=== PATIENT | female | born 1955 | race Caucasian/White ===

== ENCOUNTER → 2023-04-29 13:28 | Outpatient (REF) | payer OTHER, SELFPAY | LOC: MRI 3T 13:28 | PROVIDERS: ATTENDING PHYSICIAN Nurse Practitioner Family; FAMILY PHYSICIAN Physician Assistant Medical | DX: Z80.3 Family history of malignant neoplasm of breast (principal); Z15.01 Genetic susceptibility to malignant neoplasm of breast | CPT/HCPCS: 77049; A9585 ==

== ENCOUNTER → 2023-06-11 12:58 | Outpatient (REF) | payer OTHER, SELFPAY | LOC: WDC 12:58 | PROVIDERS: ATTENDING PHYSICIAN Nurse Practitioner Family; FAMILY PHYSICIAN Physician Assistant Medical | DX: Z12.31 Encounter for screening mammogram for malignant neoplasm of breast (principal) | CPT/HCPCS: 77063; 77067 ==

== ENCOUNTER → 2024-06-15 13:25 | Outpatient (REF) | payer OTHER, SELFPAY | LOC: WDC 13:25 | PROVIDERS: ATTENDING PHYSICIAN Nurse Practitioner Family | DX: Z12.31 Encounter for screening mammogram for malignant neoplasm of breast (principal) | CPT/HCPCS: 77063; 77067 ==

== ENCOUNTER 2024-07-11 23:39 | Inpatient (IN) | payer OTHER, SELFPAY ==
[2024-07-11 19:37] VITALS: BP 170/110
[2024-07-11] MEDS: MOTRIN 600 MG PO (19:44)
[2024-07-11 20:09] LABS: % Basophils 0.4 % (0-2); % Eosinophils 1.6 % (0-6); % Immature Granulocytes 0.7 % (0-0.5); % Lymphocytes 2.3 % (20.5-51.1); % Monocytes 7.7 % (1.7-9.3); % Neutrophils 87.3 % (42.2-75.2); Absolute Eosinophils 0.2 10^3/uL (0-0.7); Absolute Immature Granulocytes 0.1 10^3/uL (0-0.05); Absolute Lymphocytes 0.3 10^3/uL (1.2-3.4); Absolute Monocytes 0.9 10^3/uL (0.1-0.6); Absolute Neutrophils 9.9 10^3/uL (1.4-6.5); Hematocrit 37.3 % (37.0-47.0); Hemoglobin 13.2 g/dL (12.0-16.0); Mean Corp Hgb Conc. 35.4 g/dL (33.0-37.0); Mean Corpuscular Hgb 28.4 pg (27.0-31.0); Mean Corpuscular Volume 80.4 fL (81.0-99.0); Mean Platelet Volume 12.3 fL (7.4-10.4); Nucleated Red Blood Cells % 0 %; Platelet Count 127 10^3/uL (130-400); Red Blood Cell Count 4.64 10^6/uL (4.20-5.40); Red Cell Dist. Width 13.7 % (11.5-14.5); White Blood Cell Count 11.4 10^3/uL (4.8-10.8)
--- NOTE | 2024-07-11 20:23 | ED.GENMED ---
History of Present Illness
General
Chief Complaint: Urinary Symptoms
Source: patient
Exam Limitations: none
Time Seen by Provider: 07/11/24 19:42
Nursing documentation reviewed up to this point in time: agreed with
History of Present Illness
History of Present Illness:
69-year-old female presents with fever and chills onset a few days ago send urine [facility] started on Macrobid had 3 doses, had chills, temp of 102.8, concerned that she has had sepsis from impacted gallstone and impacted kidney stone, has no flank
pain, no real abdominal pain has been coughing a bit, has had a flu shot
Past History
Past History
ED Past Medical History: GERD, HTN, NIDDM, Hypothyroidism and Other (Hyponatremia, interstitial cystitis, cervical and lumbar disc disease)
ED Past Surgical History: Cholecystectomy, Gynecological (hyster), Orthopedic (Right total knee replacement November 2016, left total knee replacement December 2017) and Urological
Social History
Tobacco: Non-smoker
Alcohol: None
Drug: None
Personal:
Living: with family
Employment: Employed
Family History
Family History: Other (Noncontributory)
Review of Systems
Review of Systems
All Other Systems: Not applicable
Constitutional: Reports fever, fatigue and chills
Respiratory: Reports cough
ABD/GI: Reports nausea; Denies abdominal pain
: Reports dysuria, frequency and urgency; Denies flank pain, incontinence, difficulty voiding or dark urine
Musculoskeletal: Reports no symptoms
Skin: Reports no symptoms
Neurological: Reports weakness
Phy Exam
Physical Exam
Physical Exam:
Physical Exam
General: 69-year-old female febrile
Neck: No jaundice
Heart: s1/s2 regular rate and rhythm, no murmur. equal radial pulses.
Lungs: Faint wheezing bilateral
Abdomen: Soft minimal suprapubic tenderness
Neuro: alert and oriented. no focal neurological deficits
Skin: no rash
Psychiatric: well kept. interactive and cooperative
Extremities: no edema.
Course
Orders/Labs/Results
Orders:
Orders
07/11/24 19:41
Ibuprofen [Motrin] 600 mg PO NOW STA
07/11/24 20:00
Complete Blood Count/With Diff Urgent
Comprehensive Metabolic Panel Urgent
Lactic Acid Q4H
Comment: CANCEL 2nd LACTIC ACID IF 1st LACTIC ACID IS LESS THAN 2
Lactic Acid Urgent
07/11/24 20:08
CT Abd/pelvis W Iv Cont Urgent
Comment:
Reason For Exam: fever
CR Chest - 2 Views Urgent
Comment:
Reason For Exam: fever
07/11/24 20:09
0.9% Sodium Chloride 1000 ml [Nss] 2,000 ml IV BOLUS
Acetaminophen [Tylenol] 1,000 mg PO NOW STA
CefTRIAXone [Rocephin] 1,000 mg IV NOW STA
07/11/24 20:17
COVID-19 Antigen Urgent
Source: Nasal Swab
Blood Culture Q30M
NIKKY Source: Blood/Venous
Specimen Description:
Blood Culture Q30M
NIKKY Source: Blood/Venous
Specimen Description:
Influenza A+B Rapid Molecular Urgent
NIKKY Source: Nasal Swab
Specimen Description:
07/11/24 22:05
Urinalysis Urgent
Date Specimen was Collected: 07/11/24
Time Specimen was Collected: 21:58
Urine Culture Urgent
NIKKY Source: Urine
Specimen Description:
Obtained by: Bladder
Date Specimen was Collected: 07/11/24
Time Specimen was Collected: 21:58
07/12/24 00:00
Lactic Acid Q4H
Comment: CANCEL 2nd LACTIC ACID IF 1st LACTIC ACID IS LESS THAN 2
Abnormal Lab Results
07/11/24
20:00
WBC 11.4 H 10^3/uL
(4.8-10.8)
MCV 80.4 L fL
(81.0-99.0)
Plt Count 127 L 10^3/uL
(130-400)
MPV 12.3 H fL
(7.4-10.4)
Abs Immat Gran (auto) 0.1 H 10^3/uL
(0-0.05)
Absolute Neuts (auto) 9.9 H 10^3/uL
(1.4-6.5)
Absolute Lymphs (auto) 0.3 L 10^3/uL
(1.2-3.4)
Absolute Monos (auto) 0.9 H 10^3/uL
(0.1-0.6)
Immature Gran % 0.7 H %
(0-0.5)
Neutrophils % 87.3 H %
(42.2-75.2)
Lymphocytes % 2.3 L %
(20.5-51.1)
Sodium 134 L mmol/L
(135-145)
Potassium 3.3 L mmol/L
(3.5-5.1)
Chloride 97 L mmol/L
(98-107)
BUN 19 H mg/dl
(7-17)
Creatinine 1.1 H mg/dL
(0.6-1.0)
Glucose 198 H mg/dl
(70-99)
Lactic Acid 2.2 H mmol/L
(0.7-2.0)
07/11/24 20:00
07/11/24 20:00
Vital Signs
Initial and Last Documented VS:
Initial Vital Signs
Temp Pulse Resp BP Pulse Ox
102.0 F H 88 20 170/110 95
07/11/24 19:37 07/11/24 19:37 07/11/24 19:37 07/11/24 19:37 07/11/24 19:37
Last Documented Vital Signs
Temp Pulse Resp BP Pulse Ox
101 F H 122 23 170/110 97
07/11/24 20:00 07/11/24 20:00 07/11/24 20:00 07/11/24 19:37 07/11/24 19:54
MDM/Problems Addressed
Differential Diagnosis Includes:
UTI sepsis pneumonia viral syndrome biliary intra-abdominal
MDM/Problems Addressed:
Fever
Chronic conditions affecting care: DM
Acute Exacerbation and/or Progression of Chronic Illness: DM
*Radiology
Radiology exam reviewed: preliminary read by ED provider
*Pulse Oximetry
Patient hypoxic: no
*Gospel Singer Interpretation
Rate: tachycardiac
Interpretation: abnormal
Heart Rate: 118
Rhythm: sinus
*Critical Care Note
Total Time (30-74mins, 75-104mins- exclusive of procedures): 31
Data Reviewed
Review of Other/Old Records Reveals: Labs and Records
Source: patient
Update Note
Update Note:
10:15 PM patient feeling better labs noted viral swabs noted CT noted I did review with radiology concerns it could be an abnormality include malignancy versus other, did review concerns with patient, at this point I believe would be prudent to
admit her to the hospital likely urosepsis failed outpatient therapy
ED Attending Note
-
Portions of this chart may have been created with voice recognition software.� Occasional wrong word or��sound alike� substitutions may have occurred due to the inherent limitations of voice recognition software.
Discharge Plan
Departure
Patient Disposition: Admit
Date of Disposition: 07/11/24
Time of Disposition: 22:14
Admit to: Med/Surg
Presentation/result/management discussed w/ accepting MD/DO: Hospitalist
Patient with high blood pressure during this ER visit?: No
Condition: Fair
Covid-19: Negative COVID-19
Discharge Problem:
Sepsis syndrome
Prescriptions:
No Action
levothyroxine 75 MCG tablet
75 mcg PO DAILY
acetaminophen-caffeine [Excedrin Tension Headache] 1 TAB tablet
1 tab PO BID
pantoprazole 40 MG tablet,delayed release (DR/EC)
40 mg PO BID
metformin 500 MG tablet
500 mg PO HS
metformin 500 MG tablet
1,000 mg PO DAILY AT 0700
hydrocodone-acetaminophen 1 TABLET tablet
1 - 2 tab PO Q4HPRN PRN (Reason: moderate to severe pain) Qty: 20 0RF
lidocaine [Aspercreme (lidocaine)] 1 PATCH adhesive patch,medicated
2 patch transdermal DAILY PRN (Reason: pain)
triamterene-hydrochlorothiazid 1 CAPSULE capsule
1 cap PO DAILY
Patient Comments:
37.5/25 mg
oxycodone 5 MG tablet
5 mg PO BID
propranolol [Inderal XL] 120 MG capsule,extended release 24hr
120 mg PO HS
baclofen 10 MG tablet
10 mg PO BID
cephalexin 500 MG capsule
500 mg PO QID Qty: 20 0RF
sucralfate [Carafate] 1 gram tablet
1 g PO AC Qty: 30 0RF
Referrals:
Camila Spaulding PA-C [Family Provider] -
Interventions
Interventions:
*Risk Screen - Suicide Last Done: 07/11/24 20:33
*General Assessment Last Done: 07/11/24 19:37
*Neglect/Abuse Screening Last Done: 07/11/24 20:04
*ED- Fall Risk Assessment Last Done: 07/11/24 20:04
*ED COVID-19 Vaccine History Last Done: 07/11/24 20:04
ED-Female Genitourinary Assessment Last Done: 07/11/24 20:04
Discharge Date and Time
Print Language: PANAMANIAN
[2024-07-11 20:24] LABS: ALT (SGPT) 27 U/L (0-35); AST (SGOT) 34 U/L (14-36); Albumin 4.4 g/dl (3.5-5.0); Alkaline Phosphatase 78 U/L (38-126); Blood Urea Nitrogen 19 mg/dl (7-17); Calcium 10.1 mg/dl (8.4-10.2); Carbon Dioxide 23 mmol/L (22-30); Chloride 97 mmol/L (98-107); Glucose 198 mg/dl (70-99); Lactic Acid 2.2 mmol/L (0.7-2.0); Potassium 3.3 mmol/L (3.5-5.1); Sodium 134 mmol/L (135-145); Total Bilirubin 1.3 mg/dl (0.2-1.3); Total Protein 7.3 g/dl (6.3-8.2); eGFR 54.39
[2024-07-11] MEDS: NSS 2000 IV (20:27)
[2024-07-11] MEDS: ROCEPHIN 1000 MG IV (20:28)
[2024-07-11 21:02] LABS: COVID-19 Antigen Negative (Negative)
[2024-07-11 22:13] LABS: Urine Albumin 2+ (Neg - Trace); Urine Bilirubin Negative (Negative); Urine Character Clear (Clear); Urine Glucose Negative (Negative); Urine Ketone 1+ (Negative); Urine Leukocyte 1+ (Negative); Urine Nitrite Negative (Negative); Urine Occult Blood Negative (Negative); Urine Specific Gravity 1.005 (<1.030); Urine Urobilinogen Negative (Neg - 1+)
[2024-07-11 22:22] VITALS: BMI 34.0
[2024-07-11 22:26] VITALS: BP 147/81
[2024-07-11 22:29] LABS: Urine Red Blood Cell 0-2 /HPF (0-2)
[2024-07-11 22:30] LABS: Urine Bacteria Few (Negative)
--- NOTE | 2024-07-11 23:01 | HPS.HSE ---
Family Physician
-
Family Physician: Camila Spaulding
Chief Complaint
-
Fevers and chills
History of Present Illness
Patient is a 69-year-old with past medical history significant for interstitial cystitis, recurrent UTIs, nephrolithiasis, type 2 diabetes, presenting to the emergency department with fevers and chills from home.
Patient reported that she started having bladder symptoms 2 days ago including frequency, pelvic discomfort, dysuria and some urgency. She reports this is typical of her interstitial cystitis and usually gets checked out. She did get urine studies
at [facility] on Friday and she started Macrobid on Friday. She has taken 3 doses of Macrobid since then and started developing fevers today. She had a fever up to 101 associated with chills and rigors at home. She felt nauseous but did not have
any vomiting. She felt similar to when she had sepsis in the setting of impacted gallstones for which she is status post cholecystitis and she decided come to the emergency department. She denies having any flank pain. She denies any cough.
Denies any shortness of breath. She has no known sick contacts. She denies any rash, joint aches and pains.
In the emergency department she had a Tmax of 102, blood pressure was 147/81 and she was tachycardic to 104. Was in saturation was 94% on room air.
She had a white count of 11.4, hemogram platelets were normal. Electrolytes had a potassium of 3.3 but otherwise unremarkable. BUN/creatinine with stable. Lactic acid was 2.2 glucose was 198. Chest x-ray showed no acute to interstitial
infiltrates. COVID test was negative. Influenza test was negative.
CT of the abdomen and pelvis showed mild portal splenomegaly with diffuse fatty liver, prior cholecystectomy, no biliary changes, there is a 0.8 cm low-attenuation partially exophytic right renal lesion too small to characterize but most likely not
a simple cyst. Possibly a complex/proteinaceous cyst.
Medical History
Past Medical History
Past Medical History: Reports HTN, Hypothyroidism, NIDDM, Psychiatric and Other (gout, breast cyst, meningioma, ckd 3, nephrolithiasis)
Past Surgical History: Reports Appendectomy, Bowel Resection (Partial colectomy), Cholecystectomy, Gynocological (Hysterectomy) and Orthopedic (Bilateral total knee replacements)
Social History
Tobacco: Non-smoker
Alcohol: None
Drug: None
Personal:
Living: With Family
Employment: Retired
Family History
Family History: Not pertinent
Allergies / Home Medications
Allergies reflects when Allergies were last updated in [facility].
Home Medications with original date entered in [facility]
Allergy/Medication List:
Allergies
Allergy/AdvReac Type Severity Reaction Status Date / Time
morphine Allergy itchy;skin Verified 07/11/24 19:37
rash
Sulfa (Sulfonamide Allergy ,hives Verified 07/11/24 19:37
Antibiotics)
Home Medications
levothyroxine 75 mcg tablet 75 mcg PO DAILY Thyroid 12/23/16
acetaminophen-caffeine 500 mg-65 mg tablet (Excedrin Tension Headache) 1 tab PO BID Pain 12/18/17
pantoprazole 40 mg tablet,delayed release 40 mg PO BID 12/18/17
baclofen 10 mg tablet 10 mg PO BID 05/29/21
lidocaine 4 % topical patch (Aspercreme (lidocaine)) 2 patch transdermal DAILY PRN pain 05/29/21
oxycodone 5 mg tablet 5 mg PO BID 05/29/21
propranolol 120 mg capsule,extended release 24 hr (Inderal XL) 120 mg PO HS 05/29/21
triamterene 37.5 mg-hydrochlorothiazide 25 mg capsule 1 cap PO DAILY 05/29/21
metformin 500 mg tablet 1,000 mg PO DAILY AT 0700 Diabetes 06/22/21
metformin 500 mg tablet 500 mg PO HS 06/22/21
hydrocodone 5 mg-acetaminophen 325 mg tablet 1 - 2 tab PO Q4HPRN PRN moderate to severe pain ##20 02/28/22
cephalexin 500 mg capsule 500 mg PO QID #20 caps 10/01/21
sucralfate 1 gram tablet (Carafate) 1 g PO AC #30 tabs 05/09/22
Review of Systems
-
Constitutional: Reports Fever and Chills
EENT: Reports No Symptoms
Respiratory: Reports No Symptoms
Cardiac: Reports No Symptoms
Abdomen/GI: Reports Nausea
: Reports Dysuria and Frequency; Denies Flank Pain, Incontinence or Difficulty Voiding
Musculoskeletal: Reports No Symptoms
Skin: Reports No Symptoms
Neurological: Reports No Symptoms
Endocrine: Reports No Symptoms
Hematologic/Lymphatic: Reports No Symptoms
Psych: Reports No Symptoms
Physical Exam
Vital Signs
Vital Signs
Temp Pulse Resp BP Pulse Ox
98.8 F 101 22 147/81 95
07/11/24 22:15 07/11/24 22:45 07/11/24 22:45 07/11/24 22:26 07/11/24 22:45
Physical Exam
General: Well Developed, Well Nourished, No Apparent Distress, Comfortable and Conversant
HEENT: NormoCephalic, Anicteric, Moist mucous membranes and Atraumatic
Respiratory: Clear
Cardiac: S1/S2 and Regular Rhythm
Breast: Deferred by me
GI: Soft, Non Tender, Non Distended and Normal Bowel Sounds
Rectal: Deferred by Provider
Genito-urinary: No costovertebral tender
Musculoskeletal: No Clubbing, No Cyanosis and No Edema
Skin: Warm
Neuro: AO x 3 and Nonfocal/grossly intact
Hematologic/Lymphatic: No Lymphadenopathy
Psych: Calm
Laboratory Results
-
07/11/24 20:00
07/11/24 20:00
Laboratory Results
Lactic Acid 2.2 mmol/L (0.7-2.0) H 07/11/24 20:00
Lactic Acid Cancelled 07/11/24 20:00
Total Bilirubin 1.3 mg/dl (0.2-1.3) 07/11/24 20:00
AST 34 U/L (14-36) 07/11/24 20:00
ALT 27 U/L (0-35) 07/11/24 20:00
Alkaline Phosphatase 78 U/L (38-126) 07/11/24 20:00
Data Reviewed
-
CT Scan: Report Reviewed by me
Lab Data: Labs Reviewed by me
Old Records: Reviewed
Impression/Plan
-
IMPRESSION:
69 y.o female coming in with fever. Source uncertain but likely pyelonephritis. She has interstitial cystitis and bladder symptoms 2 days ago. She reported dysuria, pelvic pain and frequency. No flank pain. Started macrobid and has taken 3 doses
with continued urinary symptoms and now fevers to 102. U/A here is not impressive but she has been on macrobid. No other clear etiology of her fever.
PLAN:
Fever - Presumed urinary tract infection but u/a affected by recent abx. No other source of the fever clear on exam.
- admit to med/surg
- blood cultures, urine cultures sent
- obtained outpatient U/A, Ucx from Dr. Joe
- Ceftriaxone 1 g daily for now
- supportive measures
- if persistently febrile, will consult ID
Renal cyst
- per radiology not simple and possibly malignant.
- obtain CT w/ and w/o contrast. Patient has claustrophobia and will not tolerate MRI
HTN
- continue hctz-triamtere
- inderal 120
DM II
- hold metformin x 48 hours
- sliding scale insulin
Hypothyroid
- levothyroxine 112
ppi ppx - protonix
DVT PPX - lovenox sq
Code status full code
[2024-07-11] MEDS: KCL 40 MEQ PO (23:44)
[2024-07-12] MEDS: INDERAL LA 120 MG PO ×2 (00:13→21:24)
[2024-07-12 01:26] VITALS: BP 148/75; BMI 33.0
--- NOTE | 2024-07-12 01:26 | PTCARENOTE ---
Pt arrived onto floor @0126. Pt AAOx3 and able to ambulate into room without assistance. Pt with no complaints of SOB at this time. Pt oriented to room and call butler; will continue to monitor.
[2024-07-12] MEDS: NSS 1000 IV ×2 (01:58→19:58)
[2024-07-12] MEDS: SYNTHROID 112 MCG PO (04:44)
[2024-07-12 07:00] VITALS: BP 135/66
[2024-07-12 07:22] LABS: Glucose - Point of Care 125 mg/dl (70-99)
[2024-07-12] MEDS: NOVOLOG FLEXPEN-LOW RESISTANCE SC (08:49)
[2024-07-12] MEDS: DYAZIDE 1 CAPSULE PO (08:51)
[2024-07-12] MEDS: PROTONIX PO (08:57)
[2024-07-12 09:22] LABS: Lactic Acid 1.5 mmol/L (0.7-2.0)
[2024-07-12 09:25] LABS: Hematocrit 30.9 % (37.0-47.0); Hemoglobin 10.7 g/dL (12.0-16.0); Mean Corp Hgb Conc. 34.6 g/dL (33.0-37.0); Mean Corpuscular Hgb 28.2 pg (27.0-31.0); Mean Corpuscular Volume 81.3 fL (81.0-99.0); Platelet Count 108 10^3/uL (130-400); Red Cell Dist. Width 14.1 % (11.5-14.5); White Blood Cell Count 7.3 10^3/uL (4.8-10.8)
[2024-07-12 10:00] LABS: Blood Urea Nitrogen 17 mg/dl (7-17); Calcium 8.9 mg/dl (8.4-10.2); Carbon Dioxide 23 mmol/L (22-30); Chloride 101 mmol/L (98-107); Estimated Creatinine Clearance 55 ml/min; Glucose 154 mg/dl (70-99); Magnesium 1.2 mg/dl (1.6-2.3); Potassium 3.6 mmol/L (3.5-5.1); Sodium 136 mmol/L (135-145); eGFR 54.39
[2024-07-12 11:19] LABS: Glucose - Point of Care 150 mg/dl (70-99)
--- NOTE | 2024-07-12 12:07 | W.PN.HOSP.TC ---
Today's Communication/Plan
-
IV antibiotics pending final blood and urine cultures per
Repeat CT scan working up right renal cyst.
Hold metformin
Hold diuretics
IV fluids
Monitor WBC and temperature curve.
Assessment / Plan
Assessment / Plan
Impression:
69 y.o female coming in with fever. Source uncertain but likely pyelonephritis. She has interstitial cystitis and bladder symptoms 2 days ago. She reported dysuria, pelvic pain and frequency. No flank pain. Started macrobid and has taken 3 doses
with continued urinary symptoms and now fevers to 102. U/A here is not impressive but she has been on macrobid. No other clear etiology of her fever.
Urinary tract infection.
Renal cyst
Conditions prior to admission:
Essential hypertension
Type 2 diabetes.
Hypothyroidism on replacement.
Plan:
Urinary tract infection uncomplicated with no evidence of systemic infection.
Urinary symptoms two days prior to presentation while patient initiated on Macrobid
Outpatient blood cultures obtained and pending.
Urine culture pending
Blood culture pending.
Continued ceftriaxone
Monitor WBC and temperature curve.
Right renal cyst.
CT on 07/11
Mild hepatosplenomegaly with findings suggesting diffuse fatty liver.
Prior cholecystectomy. Mild prominence of the extrahepatic biliary tract most likely the sequela of prior cholecystectomy. Suggest correlation with liver function tests.
0.8 cm low-attenuation partially exophytic right renal lesion too small to characterize but most likely not a simple cyst. This could represent a complex/proteinaceous cyst. Solid mass such as MALIGNANCY CANNOT BE EXCLUDED. Suggest dedicated Abdomen
CT without and with intravenous contrast or MRI for more complete evaluation.
No findings to suggest renal calculi bilaterally.
Discussed with radiology and urology.
Plan is to repeat CT scan with and without IV contrast on 07/13
Will need outpatient urology follow-up
Essential hypertension.
Continue propranolol.
Hold thiazide diuretic acutely.
Currently on IV fluids.
Type 2 diabetes.
Patient reported reasonable blood glucose control as outpatient with most recent hemoglobin A1c at 6.
Continue basal bolus protocol.
Hold metformin acutely given IV contrast exposure
DVT prophylaxis: Lovenox
Full code
Anticipated Discharge: 24 - 48 hours
Subjective/Interval History
-
Date of Service: July 12, 2024
Objective Data
-
Labs:
Laboratory Results
07/12/24
08:55
WBC 7.3
Hgb 10.7 L
Hct 30.9 L
Plt Count 108 L
Sodium 136
Potassium 3.6
Chloride 101
Carbon Dioxide 23
BUN 17
Creatinine 1.1 H
Glucose 154 H
Calcium 8.9
Vital Signs:
Vital Signs
Temp Pulse Resp BP Pulse Ox
99 F 95 17 135/66 98
07/12/24 07:00 07/12/24 07:00 07/12/24 07:00 07/12/24 07:00 07/12/24 07:00
Physical Exam
-
General: Well Developed and No Apparent Distress
HEENT: Normocephalic, Atraumatic and Moist Mucous Membranes
Respiratory: Clear to Auscultation
Cardiac: Regular Rhythm and S1/S2; Negative Murmur, Rub or Gallop
GI: Soft, Nontender, Nondistended and Normal Bowel Sounds; Negative Organomegaly
Rectal: Deferred by Provider
Musculoskeletal: No Clubbing, No Cyanosis and No Edema
Skin: Negative Rash
Neuro: Nonfocal/Grossly Intact
[2024-07-12] MEDS: NOVOLOG FLEXPEN-LOW RESISTANCE 1 UNITS SC (14:48)
[2024-07-12 15:00] VITALS: BP 156/71
--- NOTE | 2024-07-12 15:38 | CM ---
biomedical manager reviewed patient's chart and met with patient and patient lives with her daughter in a 2 story home, patient is independent with adl's and ambulation, no dme, patient drives, home when stable, no needs.
PCP: Camila Spaulding
Pharmacy: [facility] in [place]
Plan; Home when stable, no needs.
[2024-07-12 16:39] LABS: Glucose - Point of Care 213 mg/dl (70-99)
[2024-07-12] MEDS: NOVOLOG FLEXPEN-LOW RESISTANCE 2 UNITS SC (17:11)
[2024-07-12] MEDS: LOVENOX 40 MG SC (18:35)
[2024-07-12] MEDS: STERILE WATER FOR INJECTION 10 ML IV (19:57)
[2024-07-12] MEDS: PROTONIX 40 MG PO (19:57)
[2024-07-12] MEDS: ROCEPHIN 1000 MG IV (19:57)
[2024-07-12 21:01] LABS: Glucose - Point of Care 150 mg/dl (70-99)
[2024-07-12 21:20] VITALS: BP 110/62
[2024-07-12] MEDS: XANAX 0.25 MG PO (21:24)
[2024-07-12 23:06] VITALS: BP 111/55
[2024-07-13] MEDS: SYNTHROID 112 MCG PO (05:40)
[2024-07-13 07:24] LABS: Glucose - Point of Care 128 mg/dl (70-99)
[2024-07-13 07:25] VITALS: BP 89/58
[2024-07-13] MEDS: NOVOLOG FLEXPEN-LOW RESISTANCE SC (08:14)
[2024-07-13] MEDS: PROTONIX 40 MG PO (08:19)
[2024-07-13 09:22] LABS: % Basophils 0.4 % (0-2); % Eosinophils 5.2 % (0-6); % Immature Granulocytes 0.4 % (0-0.5); % Lymphocytes 21.8 % (20.5-51.1); % Monocytes 9.9 % (1.7-9.3); % Neutrophils 62.3 % (42.2-75.2); Absolute Eosinophils 0.3 10^3/uL (0-0.7); Absolute Monocytes 0.5 10^3/uL (0.1-0.6); Hematocrit 32.9 % (37.0-47.0); Mean Corp Hgb Conc. 33.4 g/dL (33.0-37.0); Mean Corpuscular Hgb 27.8 pg (27.0-31.0); Mean Corpuscular Volume 83.1 fL (81.0-99.0); Nucleated Red Blood Cells % 0 %; Platelet Count 105 10^3/uL (130-400); Red Blood Cell Count 3.96 10^6/uL (4.20-5.40); Red Cell Dist. Width 14.1 % (11.5-14.5); White Blood Cell Count 4.8 10^3/uL (4.8-10.8)
[2024-07-13 10:02] LABS: Blood Urea Nitrogen 18 mg/dl (7-17); Calcium 9.6 mg/dl (8.4-10.2); Carbon Dioxide 26 mmol/L (22-30); Chloride 103 mmol/L (98-107); Estimated Creatinine Clearance 55 ml/min; Glucose 151 mg/dl (70-99); Potassium 3.7 mmol/L (3.5-5.1); Sodium 140 mmol/L (135-145); eGFR 54.39
[2024-07-13 10:55] LABS: ALT (SGPT) 22 U/L (0-35); AST (SGOT) 26 U/L (14-36); Albumin 3.7 g/dl (3.5-5.0); Alkaline Phosphatase 72 U/L (38-126); Direct Bilirubin 0.3 mg/dl (0.0-0.4); Total Bilirubin 0.7 mg/dl (0.2-1.3); Total Protein 6.4 g/dl (6.3-8.2)
[2024-07-13 11:47] LABS: Glucose - Point of Care 155 mg/dl (70-99)
--- NOTE | 2024-07-13 12:19 | W.PN.UPDATE ---
Update Note
Progress Note Update
Discussed mildly complex cystic mass of R kidney with hospitalist
Appearance relatively unchanged since scan in 2022 and relatively low suspicion for malignancy
She will need some surveillance imaging in around 6-12 mo
Will arrange outpatient follow up to discuss with me - our office will call to schedule
[2024-07-13] MEDS: NSS IV (13:02)
--- NOTE | 2024-07-13 13:52 | W.DS.TRANS ---
DC Summary - Mica Patcher
-
Discharge Instructions:
Discharge Diagnosis/Procedures UTI
Diet Regular
Instructions:
Stand-Alone Forms:
Changes to Home Medications: Yes
Discharge Medications:
DC Medications w/original date entered in [facility]
levothyroxine 75 mcg tablet 75 mcg PO DAILY Thyroid 12/23/16
acetaminophen-caffeine 500 mg-65 mg tablet (Excedrin Tension Headache) 1 tab PO BID Pain 12/18/17
pantoprazole 40 mg tablet,delayed release 40 mg PO BID Gastrointestinal Issue 12/18/17
baclofen 10 mg tablet 10 mg PO BID Muscle Spasms 05/29/21
lidocaine 4 % topical patch (Aspercreme (lidocaine)) 2 patch transdermal DAILY PRN pain 05/29/21
oxycodone 5 mg tablet 5 mg PO BID Pain 05/29/21
propranolol 120 mg capsule,extended release 24 hr (Inderal XL) 120 mg PO HS Blood Pressure 05/29/21
triamterene 37.5 mg-hydrochlorothiazide 25 mg capsule 1 cap PO DAILY Fluid Retention/Swelling 05/29/21
metformin 500 mg tablet 1,000 mg PO DAILY AT 0700 Diabetes 06/22/21
metformin 500 mg tablet 500 mg PO HS Diabetes 06/22/21
hydrocodone 5 mg-acetaminophen 325 mg tablet 1 - 2 tab PO Q4HPRN PRN moderate to severe pain ##20 06/25/21
sucralfate 1 gram tablet (Carafate) 1 g PO AC #30 tabs 05/09/22
Home Medication Changes
Urine culture performed prior to admission with Klebsiella sensitive to ceftriaxone and doxycycline
Patient has Rx provided by primary urinology for Doxycycline
Pending Results: No
[2024-07-13] MEDS: NOVOLOG FLEXPEN-LOW RESISTANCE 1 UNITS SC (14:19)
--- NOTE | 2024-07-13 14:58 | CM ---
Chart reviewed home today no needs.
Plan; Home no needs.
[2024-07-13 15:31] VITALS: BP 144/73
== END 2024-07-13 17:05 | disposition home or self-care (01) | DRG 690 ==
LOC: 4 WEST ACU 23:39
PROVIDERS: ADMITTING PHYSICIAN Internal Medicine; ATTENDING PHYSICIAN Internal Medicine; EMERGENCY PHYSICIAN Emergency Medicine; FAMILY PHYSICIAN Physician Assistant Medical
DX: N39.0 Urinary tract infection, site not specified (principal); E87.1 Hypo-osmolality and hyponatremia; E03.9 Hypothyroidism, unspecified; N18.30 Chronic kidney disease, stage 3 unspecified; M10.9 Gout, unspecified; N28.1 Cyst of kidney, acquired; F40.240 Claustrophobia; D32.9 Benign neoplasm of meninges, unspecified; E11.22 Type 2 diabetes mellitus with diabetic chronic kidney disease; R16.2 Hepatomegaly with splenomegaly, not elsewhere classified; K76.0 Fatty (change of) liver, not elsewhere classified; I12.9 Hypertensive chronic kidney disease with stage 1 through stage 4 chronic kidney disease, or unspecified chronic kidney disease; K21.9 Gastro-esophageal reflux disease without esophagitis; Z96.653 Presence of artificial knee joint, bilateral; Z90.49 Acquired absence of other specified parts of digestive tract; Z79.890 Hormone replacement therapy; Z79.84 Long term (current) use of oral hypoglycemic drugs; Z79.891 Long term (current) use of opiate analgesic; Z87.440 Personal history of urinary (tract) infections; Z88.5 Allergy status to narcotic agent; Z88.2 Allergy status to sulfonamides; Z87.442 Personal history of urinary calculi; Z11.52 Encounter for screening for COVID-19; Z90.710 Acquired absence of both cervix and uterus
CPT/HCPCS: 71046; 74150; 74170; 74177; 80048; 80053; 81003; 81015; 82248; 82962; 83605; 83735; 85025; 85027; 87040; 87086; 87502; 87811; 96360; 99291; Q9967

== ENCOUNTER 2024-11-03 06:17 | Day surgery (SDC) | payer OTHER, SELFPAY ==
[2024-11-03 07:26] LABS: Glucose - Point of Care 144 mg/dl (70-99)
== END 2024-11-03 09:15 | disposition home or self-care (01) ==
LOC: GI 06:17
PROVIDERS: ATTENDING PHYSICIAN Specialist
DX: Z12.11 Encounter for screening for malignant neoplasm of colon (principal); D12.3 Benign neoplasm of transverse colon; K63.5 Polyp of colon; R19.7 Diarrhea, unspecified; Z86.0100 Personal history of colon polyps, unspecified; Z98.0 Intestinal bypass and anastomosis status
CPT/HCPCS: 45380; 82962; 88305

== ENCOUNTER → 2025-01-05 06:28 | Outpatient (REF) | payer OTHER, SELFPAY ==
[2025-01-05] MEDS: LEXISCAN 0.4 MG IV (09:52)
== END ==
LOC: RCS 06:28
PROVIDERS: ATTENDING PHYSICIAN Nurse Practitioner; FAMILY PHYSICIAN Physician Assistant Medical
DX: I44.7 Left bundle-branch block, unspecified (principal); R07.9 Chest pain, unspecified
CPT/HCPCS: 78452; 93017; A9500; J2785

== ENCOUNTER → 2025-01-10 08:11 | Outpatient (REF) | payer OTHER, SELFPAY | LOC: HWRCS 08:11 | PROVIDERS: ATTENDING PHYSICIAN Nurse Practitioner; FAMILY PHYSICIAN Physician Assistant Medical | DX: I44.7 Left bundle-branch block, unspecified (principal); R07.9 Chest pain, unspecified | CPT/HCPCS: 93306 ==

== ENCOUNTER → 2025-02-03 17:32 | Outpatient (REF) | payer OTHER, SELFPAY | LOC: MRI 3T 17:32 | PROVIDERS: ATTENDING PHYSICIAN Nurse Practitioner Family; FAMILY PHYSICIAN Physician Assistant Medical | DX: R92.333 Mammographic heterogeneous density, bilateral breasts (principal); Z80.3 Family history of malignant neoplasm of breast | CPT/HCPCS: 77049; A9585 ==